=== PATIENT | female | born 1955 | race Caucasian/White ===

== ENCOUNTER 2021-11-02 12:14 | Day surgery (SDC) | payer MEDICARE, OTHER ==
[2021-11-02] MEDS ORDERED: ALPRAZolam 0.25 MG TAB PO PRN (12:40)
[2021-11-02 13:02] VITALS: RESP 14; TEMP 97.7
--- NOTE | 2021-11-02 14:19 | US ---
ULTRASOUND GUIDED FNA THYROID BIOPSY: CLINICAL HISTORY: Large left thyroid nodule FINDINGS: The procedure was explained to the patient. The risks, complications, benefits and alternatives were discussed and any questions were answered. Informed consent was obtained. Patient was placed supin e on the ultrasound table and prepped and draped in the usual sterile fashion. Utilizing a 25 gauge needle, five passes were made into the requested large left thyroid nodule. Patient was stable throughout the procedure. Pathology is pending. All elements of maximal barrier technique were utilized. IMPRESSION: 1. Successful ultrasound guided FNA thyroid biopsy.
[2021-11-02 14:44] VITALS: PULSE 64
[2021-11-02 14:45] VITALS: BP 135/63
== END 2021-11-02 14:18 | disposition home or self-care (01) ==
LOC: RADPROMAIN 12:14
PROVIDERS: ATTEND Family Medicine
DX: E04.1 Nontoxic single thyroid nodule (principal)
CPT/HCPCS: 10005; 88173; 88305

== ENCOUNTER → 2021-12-03 | Outpatient (CLI) | payer MEDICARE, OTHER ==
--- NOTE | 2021-12-03 10:27 | CT ---
EXAMINATION TYPE: CT brain wo con DATE OF EXAM: 12/03/2021 COMPARISON: None HISTORY: 66-year-old female G83.20, Left arm weakness, dizziness TECHNIQUE: Examination was done in axial plane without intravenous contrast. Coronal and sagittal r econstructions performed. CT DLP: 1147 mGycm Automated exposure control for dose reduction was used. FINDINGS: There is no evidence of acute intracranial hemorrhage, acute ischemic changes, mass, mass-effect, or extra-axial fluid collection. There is no effacement of cerebral sulci or basal subarachnoid cister ns. There is no hydrocephalus. There is no midline shift. Arndt-white matter distinction is preserv ed. Mild age-related bifrontal cerebral cortical volume loss. Mild patchy periventricular white matter hy podensities likely on the basis of chronic small vessel ischemic disease. Asymmetrically larger right lateral ventricle likely congenital variation. Trace mucosal thickening ethmoid air cells. Orbits and globes are intact. IMPRESSION: Mild patchy burden of chronic small vessel ischemic disease. No acute intracranial abnormality seen.
== END | disposition home or self-care (01) ==
LOC: RADCTMAIN 10:00
PROVIDERS: ATTEND Family Medicine
DX: I67.82 Cerebral ischemia (principal)
CPT/HCPCS: 70450